=== PATIENT | male | born 1995 | race Caucasian/White ===

== ENCOUNTER 2017-06-05 08:54 | Day surgery (SDC) | payer OTHER, SELFPAY ==
[~2017-06-05] VITALS: Ht 185.4 cm; Wt 99.8 kg
[~2017-06-05 08:54] MED LIST: CLON-412 PO; LAMO100T PO; LITH300C PO; RISP1TAB3 PO
[2017-06-05] MEDS ORDERED: AMPICILLIN SOD/SULBACTAM SOD 3 GM in D5W MINI-BAG PLUS 100 ML IV ONE (09:15)
[2017-06-05] MEDS ORDERED: LR 1,000 ML IV ONE (09:15)
[2017-06-05] MEDS ORDERED: dexameTHASONE 4 MG/ML 1ML VIAL (J1100) IV ONE (09:15)
[2017-06-05] MEDS ORDERED: PHENYLEPHRINE 0.5% NASAL SPRAY 15 ML As Ordered ONE (09:45)
[2017-06-05] MEDS ORDERED: MIDAZOLAM INJ 2 MG/2 ML VIAL (J2250) As Ordered ONE ×2 (10:24→12:58)
[2017-06-05] MEDS: MIDAZOLAM INJ 2 MG/2 ML VIAL (J2250) IV PRN ×2 (10:28→11:31)
[2017-06-05] MEDS ORDERED: LIDOCAINE 2% W/ EPINEPHRINE 1.7 ML DENTAL INJ As Ordered ONE (12:51)
[2017-06-05] MEDS ORDERED: PROPOFOL 500 MG/50 ML VIAL As Ordered ONE (12:58)
[2017-06-05] MEDS ORDERED: fentaNYL 100 MCG/2 ML INJECTION (J3010) As Ordered ONE ×2 (12:58→13:35)
[2017-06-05] MEDS ORDERED: dexameTHASONE 4 MG/ML 1ML VIAL (J1100) As Ordered ONE (12:58)
[2017-06-05] MEDS ORDERED: LIDOCAINE 2% INJ 100 MG/5 ML SDV (FOR ANES.) As Ordered ONE (13:08)
[2017-06-05] MEDS ORDERED: SUCCINYLCHOLINE 100 MG/5 ML SYRINGE (J0330) As Ordered ONE (13:08)
[2017-06-05] MEDS ORDERED: ONDANSETRON 4MG/2ML VIAL (J2405) As Ordered ONE (13:08)
[2017-06-05] MEDS ORDERED: PROPOFOL 200 MG/20 ML VIAL As Ordered ONE (13:34)
[2017-06-05] MEDS: LABETALOL HCL 100 MG/20 ML VIAL IV PRN ×4 (14:00→14:47)
[2017-06-05] MEDS ORDERED: ONDANSETRON 4MG/2ML VIAL (J2405) IV PRN (14:45)
[2017-06-05] MEDS ORDERED: PERCOCET 5MG/325MG TAB PO PRN (14:45)
[2017-06-05] MEDS ORDERED: HYDROmorphone HCL 1 MG/ML SYRINGE (J1170) IV PRN (14:45)
[2017-06-05] MEDS ORDERED: fentaNYL 100 MCG/2 ML INJECTION (J3010) IV PRN (14:45)
[2017-06-05] MEDS ORDERED: LR 1,000 ML IV SCH (14:45)
[2017-06-05] MEDS ORDERED: hydrALAZINE INJ 20 MG/ML VIAL As Ordered ONE (15:17)
[2017-06-05] MEDS: hydrALAZINE INJ 20 MG/ML VIAL IV SCH ×4 (15:19→15:36)
[2017-06-05] MEDS ORDERED: AMLO5TAB2 PO (15:56)
[2017-06-05 16:00] VITALS: BP 180/98
[2017-06-05] MEDS ORDERED: amLODIPine 10 MG TAB PO ONE (16:00)
[2017-06-05] MEDS ORDERED: cloNIDine 0.1 MG TAB PO ONE (16:00)
[2017-06-05] MEDS ORDERED: PERCOCET 5MG/325MG TAB As Ordered ONE (16:04)
[2017-06-05 16:40] VITALS: BP 170/90
--- NOTE | 2017-06-06 17:23 | RO ---
DATE OF PROCEDURE: 06/05/2017 PREOPERATIVE DIAGNOSES: 1. Asperger syndrome, severe dental anxiety. 2. Grossly decayed and symptomatic teeth number 1, 2, 15, 16, 17, 19, 30 and 32. POSTOPERATIVE DIAGNOSES: 1. Asperger syndrome, severe dental anxiety. 2. Status post grossly decayed and symptomatic teeth number 1, 2, 15, 16, 17, 19, 30 and 32. PROCEDURE PERFORMED: Extraction of the aforementioned teeth. SURGEON: Jeremy Lee DMD, MD RN ASSESSMENT: ANESTHESIA: General endotracheal anesthesia via nasal ray. SPECIMEN: Teeth for gross only. INDICATIONS FOR SURGERY: The patient is a pleasant 21-year-old male who presented to my office for evaluation for extraction of the aforementioned teeth. His past medical history and clinical examination revealed a healthy looking 21-year-old male with severe dental anxiety and limited cooperativeness for the dental examination as well as Asperger syndrome. Oral examination reveals grossly decayed to the gum line teeth 1, 2, 15, 16, 17, 19, 30 and 32 and very poor oral hygiene. A discussion was made with the patient and the mother regarding the anesthesia for the extractions. I elected to provide either local anesthesia in the office or general anesthesia in the operating room. The patient and mother would like to have the procedure done in the operating room (OR) under general anesthesia due to the patient's anxiety and limited cooperativeness. An informed consent was explained to the patient and the mother and is signed and is in the patient's chart, as well as a complete history and physical. DESCRIPTION OF PROCEDURE: On 06/05/2017, the patient presented to [facility]. He was met by myself and the anesthesiologist, any last minute questions were addressed. The history and physical and the consent were updated. At that point, the patient was taken back to the operating room. He was laid supine on the operating room table. Ulnar nerve protectors were placed. Noninvasive cardiac monitors were applied. At that point, the patient underwent general anesthesia and was intubated with a nasal ray, which was then secured to the patient's forehead. At this point, the patient was then prepped and draped in the usual sterile fashion. A time-out procedure was performed to identify the patient, the procedure and any other precautions. Preoperative antibiotics and steroids were given. At this point, the patient was prepped and draped, as I mentioned, in the usual sterile fashion, followed by the insertion of a moist throat pack into the patient's oropharynx, 12 carpules of 2% lidocaine with 1:100,000 epinephrine were given as local infiltration in multiple blocks. The teeth were grossly decayed; therefore, I was not able to luxate them primarily. Therefore, a full-thickness flap was released in each of these teeth - number 1, 2, 15, 16, 17, 19, 30 and 32. Flaps were reflected subperiosteally in each indicated tooth area. A Surgairtome was then used to remove buccal bone from teeth number 1, 2, 15, 16, 17, 19, 30 and 32. At this point, teeth were then luxated and delivered without any incident and with ease. All the sockets were curetted and irrigated. No sinus exposure was noted. The inferior alveolar nerve was not noted. Lingual cortices were all intact. At this point, once all the sockets were curetted and irrigated, the flaps were closed semi-primarily with #3-0 chromic sutures. Gauze hemostasis was easily achieved. At this point, the oral cavity was irrigated and suctioned, the throat pack was removed and the patient was then extubated without any incident and taken back to the post-anesthesia care unit (PACU). ESTIMATED BLOOD LOSS: 50 mL. DRAINS: None. COMPLICATIONS: None.
== END 2017-06-05 17:08 | disposition home or self-care (01) ==
LOC: M SDC 08:54
PROVIDERS: ATTEND Dentist
DX: K02.9 Dental caries, unspecified (principal); F84.5 Asperger's syndrome; Z79.899 Other long term (current) drug therapy
CPT/HCPCS: 88300; D7210; D9223